=== PATIENT | male | born 1970 | race Caucasian/White ===

== ENCOUNTER 2017-12-21 14:07 | Inpatient (IN) | payer MEDICAID ==
[~2017-12-21] VITALS: Ht 177.8 cm; Wt 75.7 kg
[~2017-12-21 14:07] MED LIST: AMLO10TA80 MT; BUPR300T52 MT; HYDR100T26 MT; LABE300T3 MT; LISI40TA4 MT; QUET300T2 PO
[2017-12-21] MEDS ORDERED: HYDROCODONE/ACETAMINOPHEN 5/325MG TABLET PO ONE (19:00)
[2017-12-21 20:20] LABS: BASOPHILS % 0.9 % (0.0-2.0); EOSINOPHILS % 3.1 % (0.0-5.0); HEMATOCRIT. 23.7 % (42.0-52.0); MEAN CORPUSCULAR HEMOGLOBIN 30.4 pg (28.0-32.0); MEAN PLATELET VOLUME 7.1 fl (7.4-10.4); PLATELET 169 x1000/uL (130-400); RED BLOOD CELL COUNT 2.63 mill/uL (4.7-6.1); RED CELL DISTRIBUTION WIDTH 17.3 % (11.6-14.6)
[2017-12-21 20:25] LABS: INR 1.3; PROTHROMBIN TIME 12.7 sec (9.1-11.1)
[2017-12-21 20:28] LABS: CHLORIDE 97 mEq/L (98-107)
[2017-12-21] MEDS ORDERED: PIPERACILLIN/TAZOBACTAM 3.375GM/50ML PREMIX IV ONE (20:45)
[2017-12-21] MEDS ORDERED: PIPERACILLIN/TAZ 3.375G PREMIX 50 ML IV SCH (20:45)
[2017-12-21] MEDS ORDERED: ACETAMINOPHEN 325MG TABLET PO PRN (21:30)
[2017-12-21] MEDS ORDERED: HYDROCODONE/ACETAMINOPHEN 5/325MG TABLET PO PRN (21:30)
[2017-12-21] MEDS ORDERED: ONDANSETRON HCL 4MG/2ML INJ IV PRN (21:30)
[2017-12-21] MEDS ORDERED: IPRATROPIUM/ALBUTEROL 0.5-3(2.5)MG/3ML NEB INH PRN (21:30)
[2017-12-21] MEDS: MORPHINE SULFATE 4 MG/ML CPJ (NOT FOR IM USE) IV PRN (23:41)
[2017-12-22] MEDS ORDERED: DEXTROSE 50% WATER 50ML SYRINGE IV PRN (03:15)
[2017-12-22 04:00] VITALS: BP 160/74
[2017-12-22] MEDS: MORPHINE SULFATE 4 MG/ML CPJ (NOT FOR IM USE) IV PRN ×5 (04:07→21:09)
[2017-12-22 04:19] VITALS: BP 160/74
[2017-12-22] MEDS: BLOOD SUGAR DIAGNOSTIC STRIP TEST SCH ×4 (06:27→20:53)
[2017-12-22] MEDS: INSULIN LISPRO 100 UNITS/ML SUBCUT SCH ×4 (06:33→20:53)
[2017-12-22 08:00] VITALS: BP 135/73
[2017-12-22] MEDS ORDERED: PIPERACILLIN/TAZ 3.375G PREMIX 50 ML IV SCH (09:00)
[2017-12-22 11:30] LABS: BASOPHILS % 0.9 % (0.0-2.0); EOSINOPHILS % 2.5 % (0.0-5.0); HEMATOCRIT. 23.6 % (42.0-52.0); LYMPHOCYTES % 22.3 % (20.0-50.0); MEAN CORPUSCULAR HEMOGLOBIN 30.7 pg (28.0-32.0); MEAN CORPUSCULAR VOLUME 90.3 fL (80.0-94.0); MEAN PLATELET VOLUME 7.5 fl (7.4-10.4); MONOCYTES % 4.5 % (2.0-8.0); NEUTROPHILS % 69.8 % (40.0-76.0); PLATELET 170 x1000/uL (130-400); RED BLOOD CELL COUNT 2.61 mill/uL (4.7-6.1); RED CELL DISTRIBUTION WIDTH 17.2 % (11.6-14.6)
[2017-12-22 16:00] VITALS: BP 164/76
[2017-12-22] MEDS: PIPERACILLIN/TAZ 2.25G PREMIX 50 ML IV SCH (17:09)
[2017-12-22 20:00] VITALS: BP 173/88
[2017-12-22] MEDS ORDERED: EPOETIN ALFA 10000UNITS/ML VIAL SUBCUT NR (21:00)
[2017-12-22] MEDS: CLONIDINE 0.1MG TABLET PO PRN (21:09)
[2017-12-23] VITALS (7 sets, daily range): BP systolic 148–189; BP diastolic 75–94
[2017-12-23] MEDS: MORPHINE SULFATE 4 MG/ML CPJ (NOT FOR IM USE) IV PRN ×5 (01:01→18:02)
[2017-12-23] MEDS: PIPERACILLIN/TAZ 2.25G PREMIX 50 ML IV SCH ×3 (01:01→18:07)
[2017-12-23] MEDS: CLONIDINE 0.1MG TABLET PO PRN (05:46)
[2017-12-23] MEDS: BLOOD SUGAR DIAGNOSTIC STRIP TEST SCH ×4 (06:26→21:00)
[2017-12-23] MEDS: INSULIN LISPRO 100 UNITS/ML SUBCUT SCH ×4 (07:05→21:00)
[2017-12-23 08:04] LABS: BASOPHILS % 1.9 % (0.0-2.0); EOSINOPHILS % 3.2 % (0.0-5.0); HEMATOCRIT. 24.1 % (42.0-52.0); HEMOGLOBIN. 8.3 g/dL (14.0-18.0); LYMPHOCYTES % 20.6 % (20.0-50.0); MEAN CORPUSCULAR HEMOGLOBIN 30.5 pg (28.0-32.0); MEAN CORPUSCULAR VOLUME 88.6 fL (80.0-94.0); MEAN PLATELET VOLUME 7.4 fl (7.4-10.4); MONOCYTES % 5.6 % (2.0-8.0); NEUTROPHILS % 68.7 % (40.0-76.0); PLATELET 196 x1000/uL (130-400); RED BLOOD CELL COUNT 2.71 mill/uL (4.7-6.1); RED CELL DISTRIBUTION WIDTH 16.6 % (11.6-14.6)
[2017-12-23] MEDS ORDERED: LOSARTAN POTASSIUM 100 MG TABLET PO SCH (14:30)
[2017-12-23] MEDS: DILTIAZEM HCL 30MG TABLET PO SCH ×2 (14:55→22:28)
[2017-12-24 00:32] VITALS: BP 153/76
[2017-12-24] MEDS: MORPHINE SULFATE 4 MG/ML CPJ (NOT FOR IM USE) IV PRN ×5 (00:32→21:20)
[2017-12-24] MEDS: PIPERACILLIN/TAZ 2.25G PREMIX 50 ML IV SCH ×3 (02:01→17:11)
[2017-12-24] MEDS: DILTIAZEM HCL 30MG TABLET PO SCH ×2 (05:59→12:28)
[2017-12-24 06:25] LABS: BASOPHILS % 1.3 % (0.0-2.0); EOSINOPHILS % 3.8 % (0.0-5.0); HEMATOCRIT. 24.7 % (42.0-52.0); HEMOGLOBIN. 8.5 g/dL (14.0-18.0); LYMPHOCYTES % 27.9 % (20.0-50.0); MEAN CORPUSCULAR HEMOGLOBIN 30.5 pg (28.0-32.0); MEAN CORPUSCULAR VOLUME 88.8 fL (80.0-94.0); MEAN PLATELET VOLUME 7.6 fl (7.4-10.4); MONOCYTES % 6.8 % (2.0-8.0); NEUTROPHILS % 60.2 % (40.0-76.0); PLATELET 185 x1000/uL (130-400); RED BLOOD CELL COUNT 2.78 mill/uL (4.7-6.1); RED CELL DISTRIBUTION WIDTH 16.7 % (11.6-14.6)
[2017-12-24] MEDS: BLOOD SUGAR DIAGNOSTIC STRIP TEST SCH ×4 (07:29→20:48)
[2017-12-24] MEDS: INSULIN LISPRO 100 UNITS/ML SUBCUT SCH ×4 (07:30→20:48)
[2017-12-24 08:00] VITALS: BP 166/82
[2017-12-24] MEDS ORDERED: INFLUENZA VIRUS VACCINE(AFLURIA) 0.5ML SYR IM ONE (09:00)
[2017-12-24] MEDS: BENAZEPRIL 10MG TABLET PO SCH ×2 (09:49→20:49)
[2017-12-24] MEDS: IRON SUCROSE COMPLEX 100 MG/5 ML ML IV SCH (09:49)
[2017-12-24 12:00] VITALS: BP 169/85
[2017-12-24] MEDS ORDERED: VANCOMYCIN 1500MG in DEXTROSE 5% WATER 250ML IV SCH (13:30)
[2017-12-24] MEDS: DILTIAZEM HCL 60MG TABLET PO SCH ×2 (14:00→20:48)
[2017-12-24 16:00] VITALS: BP 181/89
[2017-12-24] MEDS ORDERED: MORPHINE SULFATE 4 MG/ML CPJ (NOT FOR IM USE) IV NR (18:00)
[2017-12-24 20:00] VITALS: BP 193/96
[2017-12-24] MEDS: EPOETIN ALFA 4000UNITS/ML VIAL SUBCUT SCH (20:47)
[2017-12-24] MEDS ORDERED: EPOETIN ALFA 4000UNITS/ML VIAL SUBCUT NR (21:00)
[2017-12-25 00:48] VITALS: BP 178/81
[2017-12-25 04:00] VITALS: BP 159/76
[2017-12-25] MEDS: PIPERACILLIN/TAZ 2.25G PREMIX 50 ML IV SCH ×3 (04:10→17:01)
[2017-12-25] MEDS: MORPHINE SULFATE 4 MG/ML CPJ (NOT FOR IM USE) IV PRN ×5 (04:38→21:13)
[2017-12-25 06:25] LABS: BASOPHILS % 1.5 % (0.0-2.0); EOSINOPHILS % 3.7 % (0.0-5.0); HEMATOCRIT. 22.3 % (42.0-52.0); HEMOGLOBIN. 7.9 g/dL (14.0-18.0); MEAN CORPUSCULAR HEMOGLOBIN 31.6 pg (28.0-32.0); MEAN CORPUSCULAR VOLUME 88.8 fL (80.0-94.0); MEAN PLATELET VOLUME 7.6 fl (7.4-10.4); MONOCYTES % 6.4 % (2.0-8.0); NEUTROPHILS % 64.4 % (40.0-76.0); PLATELET 171 x1000/uL (130-400); RED BLOOD CELL COUNT 2.51 mill/uL (4.7-6.1); RED CELL DISTRIBUTION WIDTH 15.9 % (11.6-14.6)
[2017-12-25] MEDS: BLOOD SUGAR DIAGNOSTIC STRIP TEST SCH ×4 (06:45→21:00)
[2017-12-25] MEDS: DILTIAZEM HCL 60MG TABLET PO SCH ×2 (06:46→14:06)
[2017-12-25] MEDS: INSULIN LISPRO 100 UNITS/ML SUBCUT SCH ×4 (07:40→21:00)
[2017-12-25] MEDS: CLONIDINE 0.1MG TABLET PO PRN (07:44)
[2017-12-25 08:00] VITALS: BP 176/86
[2017-12-25] MEDS: IRON SUCROSE COMPLEX 100 MG/5 ML ML IV SCH (09:04)
[2017-12-25] MEDS: BENAZEPRIL 10MG TABLET PO SCH ×2 (09:50→21:13)
[2017-12-25 12:00] VITALS: BP_SYST 165; BP_SYST 183; BP_DIAS 83; BP_DIAS 89
[2017-12-25] MEDS ORDERED: VANCOMYCIN 750 MG PREMIX 150 ML IV SCH (13:00)
[2017-12-25] MEDS ORDERED: LOT10 PO (13:47)
[2017-12-25] MEDS ORDERED: DILT60TA35 PO (13:47)
[2017-12-25] MEDS: DILTIAZEM HCL 300MG CAPSULE SR 24HR PO SCH (15:36)
[2017-12-25 16:00] VITALS: BP 162/78
[2017-12-25] MEDS: SEVELAMER CARBONATE 800 MG TABLET PO SCH (17:01)
[2017-12-25] MEDS ORDERED: SEVELAMER CARBONATE 800 MG TABLET PO SCH (17:40)
[2017-12-25] MEDS ORDERED: INFLUENZA VIRUS VACCINE(AFLURIA) 0.5ML SYR IM ONE (18:30)
[2017-12-25 20:00] VITALS: BP 167/92
[2017-12-25] MEDS: DIPHENHYDRAMINE 25MG CAPSULE PO PRN (22:37)
[2017-12-26] VITALS: BP 148/76
[2017-12-26] MEDS: BLOOD SUGAR DIAGNOSTIC STRIP TEST SCH ×4 (06:21→20:39)
[2017-12-26] MEDS: INSULIN LISPRO 100 UNITS/ML SUBCUT SCH ×4 (07:40→20:40)
[2017-12-26 08:00] VITALS: BP 169/77
[2017-12-26] MEDS: SEVELAMER CARBONATE 800 MG TABLET PO SCH ×3 (08:28→17:40)
[2017-12-26] MEDS: DOCUSATE SODIUM 100MG CAPSULE PO SCH (08:28)
[2017-12-26] MEDS: FOLIC ACID/VITAMIN B COMP W-C TABLET PO SCH (08:28)
[2017-12-26] MEDS: IRON SUCROSE COMPLEX 100 MG/5 ML ML IV SCH (08:29)
[2017-12-26] MEDS: DILTIAZEM HCL 300MG CAPSULE SR 24HR PO SCH (08:29)
[2017-12-26] MEDS: BENAZEPRIL 10MG TABLET PO SCH ×2 (08:29→20:38)
[2017-12-26] MEDS: MORPHINE SULFATE 4 MG/ML CPJ (NOT FOR IM USE) IV PRN ×4 (08:48→20:37)
[2017-12-26] MEDS: CLONIDINE 0.1MG TABLET PO SCH ×2 (09:15→20:38)
[2017-12-26] MEDS: LEVOFLOXACIN 250MG TABLET PO SCH (11:21)
[2017-12-26 12:00] VITALS: BP 150/74
[2017-12-26 16:00] VITALS: BP 196/97
[2017-12-26] MEDS ORDERED: VANCOMYCIN 750 MG PREMIX 150 ML IV SCH (16:00)
[2017-12-26 20:00] VITALS: BP 189/77
[2017-12-26] MEDS: DIPHENHYDRAMINE 25MG CAPSULE PO PRN (21:32)
[2017-12-26] MEDS: EPOETIN ALFA 4000UNITS/ML VIAL SUBCUT SCH (21:33)
[2017-12-27] VITALS: BP 165/88
[2017-12-27] MEDS: CLONIDINE 0.1MG TABLET PO PRN ×2 (00:59→12:16)
[2017-12-27] MEDS: MORPHINE SULFATE 4 MG/ML CPJ (NOT FOR IM USE) IV PRN ×5 (01:45→21:55)
[2017-12-27] MEDS ORDERED: PNEUMOCOCCAL 23-VAL P-SAC VAC 0.5 ML IM ONE (04:00)
[2017-12-27] MEDS: DIPHENHYDRAMINE 25MG CAPSULE PO PRN (05:53)
[2017-12-27] MEDS: INSULIN LISPRO 100 UNITS/ML SUBCUT SCH ×4 (07:37→20:46)
[2017-12-27] MEDS: BLOOD SUGAR DIAGNOSTIC STRIP TEST SCH ×4 (07:37→20:46)
[2017-12-27 08:10] VITALS: BP 169/78
[2017-12-27] MEDS ORDERED: TUBERCULIN,PURIF.PROT.DERIV. 5 TU/0.1 ML SYR ID ONE (08:30)
[2017-12-27] MEDS: DILTIAZEM HCL 300MG CAPSULE SR 24HR PO SCH (09:08)
[2017-12-27] MEDS: SEVELAMER CARBONATE 800 MG TABLET PO SCH ×3 (09:09→16:48)
[2017-12-27] MEDS: BENAZEPRIL 10MG TABLET PO SCH ×2 (09:10→20:43)
[2017-12-27] MEDS: FOLIC ACID/VITAMIN B COMP W-C TABLET PO SCH (09:10)
[2017-12-27] MEDS: DIPHENHYDRAMINE 50MG CAPSULE PO PRN ×2 (09:10→18:00)
[2017-12-27] MEDS: IRON SUCROSE COMPLEX 100 MG/5 ML ML IV SCH (09:11)
[2017-12-27] MEDS: CLONIDINE 0.1MG TABLET PO SCH ×2 (09:12→20:42)
[2017-12-27] MEDS: DILTIAZEM HCL 180MG CAPSULE CD 24HR PO SCH ×2 (09:15→20:42)
[2017-12-27] MEDS: DOCUSATE SODIUM 100MG CAPSULE PO SCH (09:21)
[2017-12-27 12:00] VITALS: BP 169/76
[2017-12-27 16:00] VITALS: BP 155/69
[2017-12-28] VITALS: BP 164/83
[2017-12-28] MEDS: DIPHENHYDRAMINE 50MG CAPSULE PO PRN ×3 (00:29→20:12)
[2017-12-28] MEDS: SEVELAMER CARBONATE 800 MG TABLET PO SCH ×3 (06:00→17:13)
[2017-12-28] MEDS: MORPHINE SULFATE 4 MG/ML CPJ (NOT FOR IM USE) IV PRN ×3 (06:00→18:35)
[2017-12-28] MEDS: BLOOD SUGAR DIAGNOSTIC STRIP TEST SCH ×4 (06:06→21:00)
[2017-12-28] MEDS: INSULIN LISPRO 100 UNITS/ML SUBCUT SCH ×4 (06:06→21:00)
[2017-12-28 06:15] LABS: BASOPHILS % 1.3 % (0.0-2.0); EOSINOPHILS % 3.2 % (0.0-5.0); HEMATOCRIT. 22.3 % (42.0-52.0); HEMOGLOBIN. 7.7 g/dL (14.0-18.0); LYMPHOCYTES % 28.1 % (20.0-50.0); MEAN CORPUSCULAR VOLUME 90.3 fL (80.0-94.0); MEAN PLATELET VOLUME 7.3 fl (7.4-10.4); MONOCYTES % 5.8 % (2.0-8.0); NEUTROPHILS % 61.6 % (40.0-76.0); PLATELET 193 x1000/uL (130-400); RED BLOOD CELL COUNT 2.47 mill/uL (4.7-6.1); RED CELL DISTRIBUTION WIDTH 16.6 % (11.6-14.6)
[2017-12-28 07:35] VITALS: BP 139/61
[2017-12-28] MEDS: DILTIAZEM HCL 180MG CAPSULE CD 24HR PO SCH ×3 (09:00→23:41)
[2017-12-28] MEDS: CLONIDINE 0.1MG TABLET PO SCH ×3 (09:00→23:40)
[2017-12-28] MEDS: BENAZEPRIL 10MG TABLET PO SCH ×3 (10:12→23:41)
[2017-12-28] MEDS: FOLIC ACID/VITAMIN B COMP W-C TABLET PO SCH (10:12)
[2017-12-28] MEDS: DOCUSATE SODIUM 100MG CAPSULE PO SCH (10:12)
[2017-12-28] MEDS: IRON SUCROSE COMPLEX 100 MG/5 ML ML IV SCH (10:12)
[2017-12-28] MEDS: LEVOFLOXACIN 250MG TABLET PO SCH (10:19)
[2017-12-28] MEDS: HYDROCODONE/ACETAMINOPHEN 5/325MG TABLET PO PRN ×3 (11:01→23:27)
[2017-12-28 16:00] VITALS: BP 178/92
[2017-12-28 20:00] VITALS: BP 174/97
[2017-12-28] MEDS: ASCORBIC ACID 250 MG TABLET PO SCH (21:00)
[2017-12-28] MEDS ORDERED: VANCOMYCIN 1 G PREMIX 200 ML IV NR (21:00)
[2017-12-28] MEDS: EPOETIN ALFA 4000UNITS/ML VIAL SUBCUT SCH (23:40)
[2017-12-29] VITALS: BP 175/75
[2017-12-29] MEDS: MORPHINE SULFATE 4 MG/ML CPJ (NOT FOR IM USE) IV PRN ×4 (00:40→18:41)
[2017-12-29] MEDS: DIPHENHYDRAMINE 50MG CAPSULE PO PRN ×4 (01:55→18:41)
[2017-12-29] MEDS: BLOOD SUGAR DIAGNOSTIC STRIP TEST SCH ×4 (06:01→21:06)
[2017-12-29] MEDS: INSULIN LISPRO 100 UNITS/ML SUBCUT SCH ×4 (06:01→21:00)
[2017-12-29 06:46] LABS: BASOPHILS % 1.1 % (0.0-2.0); EOSINOPHILS % 2.5 % (0.0-5.0); LYMPHOCYTES % 22.1 % (20.0-50.0); MEAN CORPUSCULAR HEMOGLOBIN 31.2 pg (28.0-32.0); MONOCYTES % 7.2 % (2.0-8.0); NEUTROPHILS % 67.1 % (40.0-76.0); PLATELET 197 x1000/uL (130-400); RED BLOOD CELL COUNT 2.56 mill/uL (4.7-6.1); RED CELL DISTRIBUTION WIDTH 16.8 % (11.6-14.6)
[2017-12-29 08:00] VITALS: BP 186/86
[2017-12-29] MEDS: BENAZEPRIL 10MG TABLET PO SCH ×2 (08:12→20:51)
[2017-12-29] MEDS: DOCUSATE SODIUM 100MG CAPSULE PO SCH (08:12)
[2017-12-29] MEDS: IRON SUCROSE COMPLEX 100 MG/5 ML ML IV SCH (08:12)
[2017-12-29] MEDS: SEVELAMER CARBONATE 800 MG TABLET PO SCH ×3 (08:12→17:12)
[2017-12-29] MEDS: CLONIDINE 0.1MG TABLET PO SCH ×2 (08:13→20:52)
[2017-12-29] MEDS: ZINC SULFATE 220 MG ( 50 ) CAPSULE PO SCH (08:13)
[2017-12-29] MEDS: FOLIC ACID/VITAMIN B COMP W-C TABLET PO SCH (08:13)
[2017-12-29] MEDS: DILTIAZEM HCL 180MG CAPSULE CD 24HR PO SCH ×2 (08:13→20:52)
[2017-12-29] MEDS: ASCORBIC ACID 250 MG TABLET PO SCH ×2 (08:14→20:52)
[2017-12-29 12:00] VITALS: BP 169/83
[2017-12-29 16:27] VITALS: BP 160/79
[2017-12-29 20:00] VITALS: BP 195/87
[2017-12-30] VITALS: BP 168/87
[2017-12-30] MEDS: DIPHENHYDRAMINE 50MG CAPSULE PO PRN ×3 (01:19→12:51)
[2017-12-30] MEDS: MORPHINE SULFATE 4 MG/ML CPJ (NOT FOR IM USE) IV PRN ×4 (01:22→20:13)
[2017-12-30] MEDS: BLOOD SUGAR DIAGNOSTIC STRIP TEST SCH ×4 (06:41→21:23)
[2017-12-30] MEDS: INSULIN LISPRO 100 UNITS/ML SUBCUT SCH ×4 (06:42→21:00)
[2017-12-30 08:00] VITALS: BP 152/74
[2017-12-30] MEDS: ZINC SULFATE 220 MG ( 50 ) CAPSULE PO SCH (08:38)
[2017-12-30] MEDS: SEVELAMER CARBONATE 800 MG TABLET PO SCH ×3 (08:38→17:40)
[2017-12-30] MEDS: DILTIAZEM HCL 180MG CAPSULE CD 24HR PO SCH ×2 (08:38→21:00)
[2017-12-30] MEDS: BENAZEPRIL 10MG TABLET PO SCH ×2 (08:38→21:00)
[2017-12-30] MEDS: CLONIDINE 0.1MG TABLET PO SCH ×2 (08:39→21:00)
[2017-12-30] MEDS: FOLIC ACID/VITAMIN B COMP W-C TABLET PO SCH (08:39)
[2017-12-30] MEDS: ASCORBIC ACID 250 MG TABLET PO SCH ×2 (08:39→21:00)
[2017-12-30] MEDS: DOCUSATE SODIUM 100MG CAPSULE PO SCH (08:39)
[2017-12-30] MEDS: LEVOFLOXACIN 250MG TABLET PO SCH (11:00)
[2017-12-30] MEDS: CLONIDINE 0.1MG TABLET PO PRN (15:50)
[2017-12-30 16:00] VITALS: BP 178/89
[2017-12-30 20:00] VITALS: BP 163/77
[2017-12-31] VITALS: BP 149/89
[2017-12-31] MEDS: BLOOD SUGAR DIAGNOSTIC STRIP TEST SCH ×4 (06:29→21:00)
[2017-12-31] MEDS: INSULIN LISPRO 100 UNITS/ML SUBCUT SCH ×4 (06:30→21:00)
[2017-12-31 08:27] VITALS: BP 168/82
[2017-12-31] MEDS: DILTIAZEM HCL 180MG CAPSULE CD 24HR PO SCH ×2 (08:59→22:28)
[2017-12-31] MEDS: CLONIDINE 0.1MG TABLET PO SCH ×2 (09:00→22:28)
[2017-12-31] MEDS: BENAZEPRIL 10MG TABLET PO SCH ×2 (09:00→22:27)
[2017-12-31] MEDS: SEVELAMER CARBONATE 800 MG TABLET PO SCH ×3 (09:24→17:20)
[2017-12-31] MEDS: FOLIC ACID/VITAMIN B COMP W-C TABLET PO SCH (09:24)
[2017-12-31] MEDS: ASCORBIC ACID 250 MG TABLET PO SCH ×2 (09:24→22:27)
[2017-12-31] MEDS: ZINC SULFATE 220 MG ( 50 ) CAPSULE PO SCH (09:24)
[2017-12-31] MEDS: DOCUSATE SODIUM 100MG CAPSULE PO SCH (09:24)
[2017-12-31 12:00] VITALS: BP 170/89
[2017-12-31 16:00] VITALS: BP 181/101
[2017-12-31] MEDS: MORPHINE SULFATE 4 MG/ML CPJ (NOT FOR IM USE) IV PRN ×2 (16:22→22:28)
[2017-12-31] MEDS: CLONIDINE 0.1MG TABLET PO PRN (18:54)
[2017-12-31] MEDS ORDERED: PNEUMOCOCCAL 23-VAL P-SAC VAC 0.5 ML IM ONE (19:30)
[2017-12-31] MEDS ORDERED: TUBERCULIN,PURIF.PROT.DERIV. 5 TU/0.1 ML SYR ID ONE (19:30)
[2017-12-31 20:00] VITALS: BP 182/83
[2017-12-31] MEDS ORDERED: EPOETIN ALFA 10000UNITS/ML VIAL SUBCUT NR (21:00)
[2017-12-31] MEDS ORDERED: VANCOMYCIN 1 G PREMIX 200 ML IV NR (23:00)
[2018-01-01] VITALS: BP 189/93
[2018-01-01 04:00] VITALS: BP 156/82
[2018-01-01] MEDS: MORPHINE SULFATE 4 MG/ML CPJ (NOT FOR IM USE) IV PRN (04:30)
[2018-01-01] MEDS: DIPHENHYDRAMINE 50MG CAPSULE PO PRN (04:30)
[2018-01-01] MEDS: BLOOD SUGAR DIAGNOSTIC STRIP TEST SCH ×5 (06:23→21:52)
[2018-01-01] MEDS: INSULIN LISPRO 100 UNITS/ML SUBCUT SCH ×4 (06:23→21:00)
[2018-01-01 07:56] VITALS: BP 167/79
[2018-01-01] MEDS: IRON SUCROSE COMPLEX 100 MG/5 ML ML IV SCH (08:09)
[2018-01-01] MEDS: DOCUSATE SODIUM 100MG CAPSULE PO SCH (08:09)
[2018-01-01] MEDS: FOLIC ACID/VITAMIN B COMP W-C TABLET PO SCH (08:10)
[2018-01-01] MEDS: BENAZEPRIL 10MG TABLET PO SCH ×2 (08:10→21:00)
[2018-01-01] MEDS: DILTIAZEM HCL 180MG CAPSULE CD 24HR PO SCH ×2 (08:10→21:00)
[2018-01-01] MEDS: CLONIDINE 0.1MG TABLET PO SCH ×2 (08:10→21:00)
[2018-01-01] MEDS: ZINC SULFATE 220 MG ( 50 ) CAPSULE PO SCH (08:10)
[2018-01-01] MEDS: SEVELAMER CARBONATE 800 MG TABLET PO SCH ×3 (08:10→17:33)
[2018-01-01] MEDS: ASCORBIC ACID 250 MG TABLET PO SCH ×2 (08:11→21:00)
[2018-01-01] MEDS: LEVOFLOXACIN 250MG TABLET PO SCH (11:00)
[2018-01-01 12:00] VITALS: BP 161/77
[2018-01-01 16:00] VITALS: BP 154/69
[2018-01-01] MEDS ORDERED: TUBERCULIN,PURIF.PROT.DERIV. 5 TU/0.1 ML SYR ID ONE (22:30)
[2018-01-01] MEDS ORDERED: MORPHINE SULFATE 4 MG/ML CPJ (NOT FOR IM USE) IV NR (22:38)
[2018-01-02 01:00] VITALS: BP 164/86
[2018-01-02] MEDS: DIPHENHYDRAMINE 50MG CAPSULE PO PRN ×3 (01:00→21:11)
[2018-01-02] MEDS: CLONIDINE 0.1MG TABLET PO PRN ×2 (01:04→13:39)
[2018-01-02] MEDS ORDERED: MORPHINE SULFATE 4 MG/ML CPJ (NOT FOR IM USE) IV NR (04:30)
[2018-01-02] MEDS: BLOOD SUGAR DIAGNOSTIC STRIP TEST SCH ×4 (07:10→21:00)
[2018-01-02] MEDS: INSULIN LISPRO 100 UNITS/ML SUBCUT SCH ×4 (07:40→21:00)
[2018-01-02 08:00] VITALS: BP 186/99
[2018-01-02] MEDS: SEVELAMER CARBONATE 800 MG TABLET PO SCH ×3 (09:05→17:58)
[2018-01-02] MEDS: FOLIC ACID/VITAMIN B COMP W-C TABLET PO SCH (09:06)
[2018-01-02] MEDS: DOCUSATE SODIUM 100MG CAPSULE PO SCH (09:06)
[2018-01-02] MEDS: DILTIAZEM HCL 180MG CAPSULE CD 24HR PO SCH ×2 (09:06→21:54)
[2018-01-02] MEDS: HYDROCODONE/ACETAMINOPHEN 5/325MG TABLET PO PRN (09:06)
[2018-01-02] MEDS: CLONIDINE 0.1MG TABLET PO SCH ×2 (09:07→21:54)
[2018-01-02] MEDS: BENAZEPRIL 10MG TABLET PO SCH ×2 (09:07→21:53)
[2018-01-02] MEDS: ZINC SULFATE 220 MG ( 50 ) CAPSULE PO SCH (09:07)
[2018-01-02] MEDS: IRON SUCROSE COMPLEX 100 MG/5 ML ML IV SCH (09:12)
[2018-01-02] MEDS: ASCORBIC ACID 250 MG TABLET PO SCH ×2 (09:12→21:53)
[2018-01-02 12:00] VITALS: BP 195/107
[2018-01-02] MEDS: HYDROCODONE/ACETAMINOPHEN 10/325MG TABLET PO PRN ×2 (15:02→21:11)
[2018-01-02 16:00] VITALS: BP 164/82
[2018-01-02 20:00] VITALS: BP 176/77
[2018-01-02] MEDS ORDERED: VANCOMYCIN 1 G PREMIX 200 ML IV SCH (21:00)
[2018-01-03] MEDS: HYDROCODONE/ACETAMINOPHEN 10/325MG TABLET PO PRN ×3 (03:04→17:27)
[2018-01-03] MEDS: DIPHENHYDRAMINE 50MG CAPSULE PO PRN ×2 (03:06→10:35)
[2018-01-03] MEDS: INSULIN LISPRO 100 UNITS/ML SUBCUT SCH ×4 (06:43→20:16)
[2018-01-03] MEDS: BLOOD SUGAR DIAGNOSTIC STRIP TEST SCH ×4 (06:43→20:15)
[2018-01-03 08:33] VITALS: BP 158/79
[2018-01-03] MEDS: SEVELAMER CARBONATE 800 MG TABLET PO SCH ×3 (08:39→17:27)
[2018-01-03] MEDS: ASCORBIC ACID 250 MG TABLET PO SCH ×2 (08:39→21:12)
[2018-01-03] MEDS: DOCUSATE SODIUM 100MG CAPSULE PO SCH (08:39)
[2018-01-03] MEDS: DILTIAZEM HCL 180MG CAPSULE CD 24HR PO SCH ×2 (08:39→21:13)
[2018-01-03] MEDS: FOLIC ACID/VITAMIN B COMP W-C TABLET PO SCH (08:39)
[2018-01-03] MEDS: ZINC SULFATE 220 MG ( 50 ) CAPSULE PO SCH (08:40)
[2018-01-03] MEDS: BENAZEPRIL 10MG TABLET PO SCH ×2 (08:40→21:13)
[2018-01-03] MEDS: CLONIDINE 0.1MG TABLET PO SCH ×2 (08:44→21:12)
[2018-01-03] MEDS: IRON SUCROSE COMPLEX 100 MG/5 ML ML IV SCH (08:44)
[2018-01-03 08:56] VITALS: BP 154/79
[2018-01-03 09:02] VITALS: BP 122/69
[2018-01-03 12:29] VITALS: BP 167/91
[2018-01-03 16:18] VITALS: BP 154/78
[2018-01-04] MEDS: BLOOD SUGAR DIAGNOSTIC STRIP TEST SCH ×4 (05:56→21:00)
[2018-01-04] MEDS: INSULIN LISPRO 100 UNITS/ML SUBCUT SCH ×4 (05:56→21:00)
[2018-01-04 06:22] LABS: EOSINOPHILS % 3.1 % (0.0-5.0); HEMATOCRIT. 24.1 % (42.0-52.0); HEMOGLOBIN. 8.3 g/dL (14.0-18.0); LYMPHOCYTES % 18.3 % (20.0-50.0); MEAN CORPUSCULAR HEMOGLOBIN 31.3 pg (28.0-32.0); MEAN CORPUSCULAR VOLUME 91.1 fL (80.0-94.0); MEAN PLATELET VOLUME 7.7 fl (7.4-10.4); MONOCYTES % 6.2 % (2.0-8.0); NEUTROPHILS % 71.4 % (40.0-76.0); PLATELET 154 x1000/uL (130-400); RED BLOOD CELL COUNT 2.65 mill/uL (4.7-6.1); RED CELL DISTRIBUTION WIDTH 19.1 % (11.6-14.6)
[2018-01-04 08:00] VITALS: BP 167/84
[2018-01-04] MEDS: ASCORBIC ACID 250 MG TABLET PO SCH ×2 (08:16→21:13)
[2018-01-04] MEDS: FOLIC ACID/VITAMIN B COMP W-C TABLET PO SCH (08:16)
[2018-01-04] MEDS: ZINC SULFATE 220 MG ( 50 ) CAPSULE PO SCH (08:16)
[2018-01-04] MEDS: SEVELAMER CARBONATE 800 MG TABLET PO SCH ×3 (08:16→17:12)
[2018-01-04] MEDS: BENAZEPRIL 10MG TABLET PO SCH ×2 (08:17→21:13)
[2018-01-04] MEDS: HYDROCODONE/ACETAMINOPHEN 10/325MG TABLET PO PRN ×4 (08:17→21:42)
[2018-01-04] MEDS: DOCUSATE SODIUM 100MG CAPSULE PO SCH (09:00)
[2018-01-04] MEDS: DILTIAZEM HCL 180MG CAPSULE CD 24HR PO SCH ×2 (09:00→21:14)
[2018-01-04] MEDS: CLONIDINE 0.1MG TABLET PO SCH ×3 (09:00→21:13)
[2018-01-04] MEDS: DIPHENHYDRAMINE 50MG CAPSULE PO PRN (11:04)
[2018-01-04 12:00] VITALS: BP 167/77
[2018-01-04 15:51] VITALS: BP 181/93
[2018-01-04 20:00] VITALS: BP 165/82
[2018-01-05] MEDS: HYDROCODONE/ACETAMINOPHEN 10/325MG TABLET PO PRN ×4 (02:29→21:38)
[2018-01-05 04:00] VITALS: BP 162/80
[2018-01-05] MEDS: DIPHENHYDRAMINE 50MG CAPSULE PO PRN ×3 (05:49→23:27)
[2018-01-05] MEDS: BLOOD SUGAR DIAGNOSTIC STRIP TEST SCH ×4 (05:50→21:00)
[2018-01-05] MEDS: INSULIN LISPRO 100 UNITS/ML SUBCUT SCH ×4 (05:50→21:00)
[2018-01-05 08:30] VITALS: BP 179/94
[2018-01-05] MEDS: ZINC SULFATE 220 MG ( 50 ) CAPSULE PO SCH (08:36)
[2018-01-05] MEDS: FOLIC ACID/VITAMIN B COMP W-C TABLET PO SCH (08:36)
[2018-01-05] MEDS: DOCUSATE SODIUM 100MG CAPSULE PO SCH (08:36)
[2018-01-05] MEDS: SEVELAMER CARBONATE 800 MG TABLET PO SCH ×3 (08:36→16:45)
[2018-01-05] MEDS: CLONIDINE 0.1MG TABLET PO SCH ×2 (08:37→21:39)
[2018-01-05] MEDS: ASCORBIC ACID 250 MG TABLET PO SCH ×2 (08:37→21:39)
[2018-01-05] MEDS: BENAZEPRIL 10MG TABLET PO SCH ×2 (08:37→21:39)
[2018-01-05] MEDS: DILTIAZEM HCL 180MG CAPSULE CD 24HR PO SCH ×2 (08:38→21:38)
[2018-01-05 11:37] VITALS: BP 156/72
[2018-01-05 16:30] VITALS: BP 165/86
[2018-01-05] MEDS: CLONIDINE 0.1MG TABLET PO PRN (16:45)
[2018-01-05 20:00] VITALS: BP 150/68
[2018-01-05] MEDS ORDERED: VANCOMYCIN 1 G PREMIX 200 ML IV NR (21:00)
[2018-01-06] VITALS: BP 153/77
[2018-01-06] MEDS: HYDROCODONE/ACETAMINOPHEN 10/325MG TABLET PO PRN ×5 (02:29→22:05)
[2018-01-06] MEDS: BLOOD SUGAR DIAGNOSTIC STRIP TEST SCH ×4 (05:53→21:00)
[2018-01-06] MEDS: INSULIN LISPRO 100 UNITS/ML SUBCUT SCH ×4 (05:53→21:00)
[2018-01-06] MEDS: DIPHENHYDRAMINE 50MG CAPSULE PO PRN ×2 (06:05→21:04)
[2018-01-06 08:01] VITALS: BP 166/90
[2018-01-06] MEDS: ASCORBIC ACID 250 MG TABLET PO SCH ×2 (08:05→21:04)
[2018-01-06] MEDS: DILTIAZEM HCL 180MG CAPSULE CD 24HR PO SCH ×2 (08:05→21:04)
[2018-01-06] MEDS: SEVELAMER CARBONATE 800 MG TABLET PO SCH ×3 (08:05→17:16)
[2018-01-06] MEDS: ZINC SULFATE 220 MG ( 50 ) CAPSULE PO SCH (08:05)
[2018-01-06] MEDS: CLONIDINE 0.1MG TABLET PO SCH ×2 (08:05→21:04)
[2018-01-06] MEDS: BENAZEPRIL 10MG TABLET PO SCH ×2 (08:05→21:04)
[2018-01-06] MEDS: DOCUSATE SODIUM 100MG CAPSULE PO SCH (08:05)
[2018-01-06] MEDS: FOLIC ACID/VITAMIN B COMP W-C TABLET PO SCH (08:05)
[2018-01-06] MEDS: BACITRACIN/POLYMYXIN B SULFATE OINT 15GM TOP SCH ×2 (08:06→21:04)
[2018-01-06 11:50] VITALS: BP 162/82
[2018-01-06] MEDS: IRON SUCROSE COMPLEX 100 MG/5 ML ML IV SCH (12:29)
[2018-01-06] MEDS ORDERED: EPOETIN ALFA 4000UNITS/ML VIAL SUBCUT SCH (13:00)
[2018-01-06 16:00] VITALS: BP 160/86
[2018-01-06] MEDS: CLONIDINE 0.1MG TABLET PO PRN (18:05)
[2018-01-06 20:00] VITALS: BP 160/76
[2018-01-07] MEDS: HYDROCODONE/ACETAMINOPHEN 10/325MG TABLET PO PRN ×3 (02:55→18:20)
[2018-01-07] MEDS: DIPHENHYDRAMINE 50MG CAPSULE PO PRN ×2 (03:05→16:20)
[2018-01-07] MEDS: INSULIN LISPRO 100 UNITS/ML SUBCUT SCH ×4 (06:52→21:00)
[2018-01-07] MEDS: BLOOD SUGAR DIAGNOSTIC STRIP TEST SCH ×4 (06:52→21:17)
[2018-01-07 08:00] VITALS: BP 160/78
[2018-01-07] MEDS: ASCORBIC ACID 250 MG TABLET PO SCH ×2 (09:00→22:56)
[2018-01-07] MEDS: ZINC SULFATE 220 MG ( 50 ) CAPSULE PO SCH (09:00)
[2018-01-07] MEDS: FOLIC ACID/VITAMIN B COMP W-C TABLET PO SCH (09:00)
[2018-01-07] MEDS: CLONIDINE 0.1MG TABLET PO SCH ×3 (09:00→21:00)
[2018-01-07] MEDS: DILTIAZEM HCL 180MG CAPSULE CD 24HR PO SCH ×3 (09:00→21:00)
[2018-01-07] MEDS: DOCUSATE SODIUM 100MG CAPSULE PO SCH ×2 (09:00→13:08)
[2018-01-07] MEDS: BENAZEPRIL 10MG TABLET PO SCH ×3 (09:00→21:00)
[2018-01-07] MEDS: SEVELAMER CARBONATE 800 MG TABLET PO SCH ×3 (09:30→18:18)
[2018-01-07 12:00] VITALS: BP 173/93
[2018-01-07] MEDS: OXYCODONE HCL/ACETAMINOPHEN 5/325MG TABLET PO PRN ×2 (13:08→22:57)
[2018-01-07 16:00] VITALS: BP 177/99
[2018-01-07] MEDS: CLONIDINE 0.1MG TABLET PO PRN ×2 (18:18→22:57)
[2018-01-07] MEDS: BACITRACIN/POLYMYXIN B SULFATE OINT 15GM TOP SCH ×2 (18:21→23:01)
[2018-01-07 20:00] VITALS: BP 169/100
[2018-01-07] MEDS ORDERED: EPOETIN ALFA 4000UNITS/ML VIAL SUBCUT PRN (21:00)
[2018-01-07] MEDS ORDERED: MORPHINE SULFATE 4 MG/ML CPJ (NOT FOR IM USE) IV NR (21:30)
[2018-01-08] MEDS: DIPHENHYDRAMINE 50MG CAPSULE PO PRN (00:53)
[2018-01-08 03:47] VITALS: BP 172/85
[2018-01-08] MEDS: HYDROCODONE/ACETAMINOPHEN 10/325MG TABLET PO PRN (03:49)
[2018-01-08 05:00] VITALS: BP 158/89
[2018-01-08] MEDS: BLOOD SUGAR DIAGNOSTIC STRIP TEST SCH (06:15)
[2018-01-08 08:00] VITALS: BP 178/87
[2018-01-08] MEDS: ASCORBIC ACID 250 MG TABLET PO SCH (08:57)
[2018-01-08] MEDS: IRON SUCROSE COMPLEX 100 MG/5 ML ML IV SCH (08:57)
[2018-01-08] MEDS: ZINC SULFATE 220 MG ( 50 ) CAPSULE PO SCH (08:57)
[2018-01-08] MEDS: SEVELAMER CARBONATE 800 MG TABLET PO SCH (08:57)
[2018-01-08] MEDS: DOCUSATE SODIUM 100MG CAPSULE PO SCH (08:57)
[2018-01-08] MEDS: DILTIAZEM HCL 180MG CAPSULE CD 24HR PO SCH (08:58)
[2018-01-08] MEDS: OXYCODONE HCL/ACETAMINOPHEN 5/325MG TABLET PO PRN (08:59)
[2018-01-08] MEDS: FOLIC ACID/VITAMIN B COMP W-C TABLET PO SCH (09:01)
[2018-01-08] MEDS: CLONIDINE 0.1MG TABLET PO SCH (09:01)
[2018-01-08] MEDS: BENAZEPRIL 10MG TABLET PO SCH (09:01)
[2018-01-08] MEDS: BACITRACIN/POLYMYXIN B SULFATE OINT 15GM TOP SCH (09:02)
[2018-01-08 10:56] VITALS: BP 150/80
[2018-01-09] MEDS ORDERED: LEVOFLOXACIN 250MG TABLET PO SCH (16:00)
== END 2018-01-08 13:00 | disposition home or self-care (01) | DRG 380 ==
LOC: ER 14:45 → EDBEDREQ 18:41 → 8WST 20:39 → EDBEDREQTM 20:41 → EDBEDREQSVC 20:41 → EDBEDREQ 20:41 → ENRESERV 12-22 02:04
PROVIDERS: ADMIT Internal Medicine; ATTEND Internal Medicine
PROC: 5A1D70Z Performance of Urinary Filtration, Intermittent, Less than 6 Hours Per Day (ICD-10-PCS; 2017-12-22)
PROC: 5A1D70Z Performance of Urinary Filtration, Intermittent, Less than 6 Hours Per Day (ICD-10-PCS; 2017-12-24)
PROC: 0JBR0ZZ Excision of Left Foot Subcutaneous Tissue and Fascia, Open Approach (ICD-10-PCS; principal; 2017-12-25)
PROC: 0JBQ0ZZ Excision of Right Foot Subcutaneous Tissue and Fascia, Open Approach (ICD-10-PCS; 2017-12-25)
PROC: 5A1D70Z Performance of Urinary Filtration, Intermittent, Less than 6 Hours Per Day (ICD-10-PCS; 2017-12-25)
PROC: 5A1D70Z Performance of Urinary Filtration, Intermittent, Less than 6 Hours Per Day (ICD-10-PCS; 2017-12-28)
PROC: 5A1D70Z Performance of Urinary Filtration, Intermittent, Less than 6 Hours Per Day (ICD-10-PCS; 2017-12-30)
PROC: 5A1D70Z Performance of Urinary Filtration, Intermittent, Less than 6 Hours Per Day (ICD-10-PCS; 2018-01-01)
PROC: 5A1D70Z Performance of Urinary Filtration, Intermittent, Less than 6 Hours Per Day (ICD-10-PCS; 2018-01-03)
PROC: 5A1D70Z Performance of Urinary Filtration, Intermittent, Less than 6 Hours Per Day (ICD-10-PCS; 2018-01-06)
DX: E11.621 Type 2 diabetes mellitus with foot ulcer (principal); L97.529 Non-pressure chronic ulcer of other part of left foot with unspecified severity; L97.419 Non-pressure chronic ulcer of right heel and midfoot with unspecified severity; I13.2 Hypertensive heart and chronic kidney disease with heart failure and with stage 5 chronic kidney disease, or end stage renal disease; E11.22 Type 2 diabetes mellitus with diabetic chronic kidney disease; E11.42 Type 2 diabetes mellitus with diabetic polyneuropathy; E87.1 Hypo-osmolality and hyponatremia; N18.6 End stage renal disease; D63.8 Anemia in other chronic diseases classified elsewhere; E11.65 Type 2 diabetes mellitus with hyperglycemia; E03.9 Hypothyroidism, unspecified; E11.51 Type 2 diabetes mellitus with diabetic peripheral angiopathy without gangrene; E11.622 Type 2 diabetes mellitus with other skin ulcer; F17.200 Nicotine dependence, unspecified, uncomplicated; I25.10 Atherosclerotic heart disease of native coronary artery without angina pectoris; I49.9 Cardiac arrhythmia, unspecified; I50.9 Heart failure, unspecified; J44.9 Chronic obstructive pulmonary disease, unspecified; L08.9 Local infection of the skin and subcutaneous tissue, unspecified; B19.20 Unspecified viral hepatitis C without hepatic coma; L97.519 Non-pressure chronic ulcer of other part of right foot with unspecified severity; Z79.84 Long term (current) use of oral hypoglycemic drugs; Z89.411 Acquired absence of right great toe; Z68.24 Body mass index [BMI] 24.0-24.9, adult; I25.2 Old myocardial infarction; Z89.432 Acquired absence of left foot; Z90.79 Acquired absence of other genital organ(s); Z99.2 Dependence on renal dialysis; Z79.899 Other long term (current) drug therapy; E87.70 Fluid overload, unspecified
CPT/HCPCS: 36415; 71045; 73630; 80048; 80061; 80202; 82962; 83605; 86706; 86803; 90585; 90686; 90732; 93005; 93306; 93970; 96365; 97116; 97162; 99291; A6261; C1893; J0885; J1815; J2270; J2405; J2543; J3370; J7030; J7040; J7050; J7060; J7620; Q0163